=== PATIENT | male | born 2000 | race Caucasian/White ===

== ENCOUNTER 2022-02-13 17:34 | Emergency (ER) | payer MEDICAID, SELFPAY ==
[2022-02-13 17:36] VITALS: BP 125/59; PULSE 122; RESP 16; TEMP 36.8; O2SAT 100; BMI 21.5
[2022-02-13 17:46] VITALS: BP 110/64; PULSE 110; RESP 16; O2SAT 100
--- NOTE | 2022-02-13 17:59 | EX.ED.DYSGE1 ---
HPI History of Present Illness Chief Complaint: General Illness Narrative Narrative: 21-year-old male presenting with his hands in spasm for hours. He states he has a history of seizure disorder which he smokes marijuana to try to control. When asked what type of seizure he had he states he did not know there was multiple kinds however he also states he has absence seizure's and tonic-clonic seizures. Patient is not on any other medication for this. He is unsure if he has had a seizure. Patient denies headache, visual complaints, dizziness. Patient does state that he has noted that his left testicle is swollen and he has had some drainage from his penis. He states he has not had sexual intercourse in 3 months. He denies any trauma. He denies any high risk sex. Patient is also complaining that his penis is swollen. He has not had a fever, chills, flank pain. No abdominal pain. [facility] Medical History Anxiety Depression Seizures Substance abuse Home Medications doxycycline hyclate 100 mg capsule 100 mg PO DAILY #20 caps 02/13/22 [Rx Last Taken Unknown] potassium chloride 20 mEq tablet,extended release 40 meq PO DAILY 1 day #2 tabs 02/13/22 [Rx Last Taken Unknown] Allergy/AdvReac Type Severity Reaction Status Date / Time No Known Allergies Allergy Verified 02/13/22 17:38 Social History Smoking Status: Heavy Smoker (>10/day) ROS [facility] ED Constitutional Constitutional ED: Denies chills, fever(s) or sweats Eyes Eyes: Denies change in vision or diplopia ENT ENT ED: Denies rhinorrhea Cardiovascular Cardiovascular: Denies chest pain or palpitations Respiratory/Chest Respiratory/Chest: Denies cough or dyspnea Gastrointestinal Gastrointestinal: Denies abdominal pain or constipation Genitourinary Genitourinary ED: Reports other Details: Urethral drainage, left testicular swelling, swelling of the glans penis. Musculoskeletal Musculoskeletal: Denies arthralgias or back pain Integumentary Reports abscess Neurologic Neurologic: Denies headache(s) Psychiatric Psychiatric: Reports anxiety; Denies suicidal ideation or suicidal thoughts EXAM Physical Exam Const Vital Signs: 02/13/22 17:36 02/13/22 17:44 02/13/22 17:46 Temperature 98.3 F Temperature Source Temporal Pulse Rate 122 H 110 H Respiratory Rate 16 16 Respiratory Effort Normal Respiratory Pattern Normal Blood Pressure 125/59 H 110/64 Blood Pressure Mean 81 79 Pulse Ox 100 100 Oxygen Delivery Method Room Air Room Air 02/13/22 20:24 02/13/22 22:24 Temperature 99.5 F H Temperature Source Oral Pulse Rate 116 H Respiratory Rate 19 H 14 Respiratory Effort Respiratory Pattern Blood Pressure 123/66 H Blood Pressure Mean 85 Pulse Ox 100 Oxygen Delivery Method Room Air Room Air Positive well nourished and unkempt General Appearance ED: unkempt HEENT Reports moist mucous membranes Eyes PERRL and EOMs intact bilaterally Chest Wall inspection of chest normal and palpation of chest normal Resp normal respiratory effort and clear to auscultation bilaterally Cardio Rate: tachycardic GI normal to inspection, nondistended, normoactive bowel sounds Back/Spine no CVA tenderness Neuro oriented x3 and CN's II-XII intact bilaterally Psych Appearance: unkempt Attitude: agitated Mood & Affect: anxious MDM MDM MDM Narrative Medical decision making narrative: Patient presenting with multiple complaints. He states that for most of the last couple of hours he has had cramps in his hands bilaterally. He also complains of urethral discharge and on examination he does have urethral discharge from the penis. His left testicle is tender to palpation and it is swollen. No evidence of torsion here. Most of the tenderness in the epididymal region. The glans penis is slightly swollen. GC is positive however chlamydia is negative. Since patient's urinalysis was initially consistent with infection he was originally given a gram of Rocephin. Urine culture is sent. CBC shows a leukocytosis of 17.8. This is likely a combination of the patient's urethritis and methamphetamine use as his drug screen is positive for opioids, methamphetamines, MDMA, marijuana. Patient was given 2 L of IV fluids given his tachycardia and his cramping. His cramping did resolve. His CMP did not show any LFT abnormalities or renal abnormalities however his potassium slight low at 2.8. He was given a dose of oral potassium 40 mEq here. EtOH negative. Magnesium within normal limits. I did send for syphilis testing however this would not come back with the patient is here and he opted to be treated so he was given penicillin G 2,400,000 units. Testicular ultrasound was performed which does show evidence of epididymitis on the left as well as a left hydrocele, and left scrotal wall thickening. I attempted to call the on-call urologist Dr. Harris, however I was informed she only takes nutritionists for females. Given this I spoke with the patient and his mother who was at the bedside regarding this and I did peer counselor him that I can give them follow-up with urology here, however they may need to obtain closer follow-up elsewhere if they cannot get in the office as Dr. Ballard is not on-call and not sure how to obtain follow-up. A urine culture is sent. Patient was given first dose of doxycycline and is given 10 days of this for home. He was also given a dose of potassium for tomorrow. Patient is to follow-up with his lab results. Impression: 1. Methamphetamine abuse 2. MDMA abuse 3. Opioid abuse 4. Marijuana abuse 5. Urethral-itis 6. Epididymitis 7. Scrotal wall thickening 8. Leukocytosis 9. Hypokalemia 10. Hand cramping Lab Data Labs: Laboratory Results - last 24 hr 02/13/22 02/13/22 02/13/22 18:06 18:06 18:06 WBC 17.8 H RBC 5.06 Hgb 14.8 Hct 42.2 MCV 83.4 MCH 29.2 MCHC 35.1 RDW Std Deviation 36.4 RDW Coeff of Juan 11.9 Plt Count 325 MPV 9.5 Immature Gran % (Auto) 0.400 Neut % (Auto) 76.4 H Lymph % (Auto) 12.8 L [place] % (Auto) 10.1 H Eos % (Auto) 0.1 Baso % (Auto) 0.2 Absolute Neuts (auto) 13.6 H Absolute Lymphs (auto) 2.27 Nucleated RBC % 0 Differential Comment SCANNED Diff Path Review May foll Sodium 134 L Potassium 2.8 L Chloride 99 Carbon Dioxide 24.0 Anion Gap 11 BUN 9 Creatinine 1.02 Estim Creat Clear Calc 112.10 Est GFR (MDRD) Af Amer 120 Est GFR (MDRD) Non-Af 99 BUN/Creatinine Ratio 8.8 L Glucose 90 Calcium 9.3 Magnesium Total Bilirubin 1.00 AST 15 ALT 28 Alkaline Phosphatase 88 Total Protein 7.3 Albumin 3.8 Globulin 3.5 Albumin/Globulin Ratio 1.1 Urine Color Urine Clarity Urine pH Ur Specific [place] Urine Protein Urine Glucose (UA) Urine Ketones Urine Occult Blood Urine Nitrite Urine Bilirubin Urine Urobilinogen Ur Leukocyte Esterase Urine RBC Urine WBC Ur Squamous Epith Cells Urine Bacteria Urine Mucus Urine Opiates Screen Urine Methadone Screen Ur Barbiturates Screen Ur Phencyclidine Scrn Ur Amphetamines Screen MDMA (Ecstasy) Screen U Benzodiazepines Scrn Urine Cocaine Screen U Cannabinoids Screen Ur Drug Screen Comment Ethyl Alcohol 5.0 Chlam trachomat DNA PCR N.gonorrhoeae DNA (PCR) POC Glucose 02/13/22 02/13/22 02/13/22 18:06 18:11 18:45 WBC RBC Hgb Hct MCV MCH MCHC RDW Std Deviation RDW Coeff of Juan Plt Count MPV Immature Gran % (Auto) Neut % (Auto) Lymph % (Auto) [place] % (Auto) Eos % (Auto) Baso % (Auto) Absolute Neuts (auto) Absolute Lymphs (auto) Nucleated RBC % Differential Comment Diff Path Review Sodium Potassium Chloride Carbon Dioxide Anion Gap BUN Creatinine Estim Creat Clear Calc Est GFR (MDRD) Af Amer Est GFR (MDRD) Non-Af BUN/Creatinine Ratio Glucose Calcium Magnesium 1.6 Total Bilirubin AST ALT Alkaline Phosphatase Total Protein Albumin Globulin Albumin/Globulin Ratio Urine Color Yellow Urine Clarity Cloudy Urine pH 7.0 Ur Specific [place] 1.010 Urine Protein 100 H Urine Glucose (UA) Normal Urine Ketones 150 A* Urine Occult Blood 250 H Urine Nitrite Negative Urine Bilirubin Negative Urine Urobilinogen 4 H Ur Leukocyte Esterase 500 H Urine RBC 10-25 SEEN Urine WBC >100 SEEN Ur Squamous Epith Cells 0-5 SEEN Urine Bacteria 2+ Urine Mucus 0 SEEN Urine Opiates Screen Urine Methadone Screen Ur Barbiturates Screen Ur Phencyclidine Scrn Ur Amphetamines Screen MDMA (Ecstasy) Screen U Benzodiazepines Scrn Urine Cocaine Screen U Cannabinoids Screen Ur Drug Screen Comment Ethyl Alcohol Chlam trachomat DNA PCR N.gonorrhoeae DNA (PCR) POC Glucose 100 02/13/22 02/13/22 18:45 18:45 WBC RBC Hgb Hct MCV MCH MCHC RDW Std Deviation RDW Coeff of Juan Plt Count MPV Immature Gran % (Auto) Neut % (Auto) Lymph % (Auto) [place] % (Auto) Eos % (Auto) Baso % (Auto) Absolute Neuts (auto) Absolute Lymphs (auto) Nucleated RBC % Differential Comment Diff Path Review Sodium Potassium Chloride Carbon Dioxide Anion Gap BUN Creatinine Estim Creat Clear Calc Est GFR (MDRD) Af Amer Est GFR (MDRD) Non-Af BUN/Creatinine Ratio Glucose Calcium Magnesium Total Bilirubin AST ALT Alkaline Phosphatase Total Protein Albumin Globulin Albumin/Globulin Ratio Urine Color Urine Clarity Urine pH Ur Specific [place] Urine Protein Urine Glucose (UA) Urine Ketones Urine Occult Blood Urine Nitrite Urine Bilirubin Urine Urobilinogen Ur Leukocyte Esterase Urine RBC Urine WBC Ur Squamous Epith Cells Urine Bacteria Urine Mucus Urine Opiates Screen POSITIVE H Urine Methadone Screen NEGATIVE Ur Barbiturates Screen NEGATIVE Ur Phencyclidine Scrn NEGATIVE Ur Amphetamines Screen POSITIVE H MDMA (Ecstasy) Screen POSITIVE H U Benzodiazepines Scrn NEGATIVE Urine Cocaine Screen NEGATIVE U Cannabinoids Screen POSITIVE H Ur Drug Screen Comment Ethyl Alcohol Chlam trachomat DNA PCR Negative N.gonorrhoeae DNA (PCR) Positive H POC Glucose Radiography Diagnostic Testing: Clinical Impression(s) from Imaging Studies Testicular Ultrasound 02/13/22 20:25 IMPRESSION: Findings are highly consistent with left epididymitis with left scrotal wall thickening, mild left hydrocele, and enlarged and hypervascular left epididymal body and tail. No evidence of testicular mass or torsion. Electronically Signed: Ellie Parrish MD at 22:04 EDT , ADDENDUM: 02/13/222 IMPRESSION: Findings are highly consistent with left epididymitis with left scrotal wall thickening, mild left hydrocele, and enlarged and hypervascular left epididymal body and tail. No evidence of testicular mass or torsion. N.B. : Jenny Leon/ED follow up clerk, OT, confirmed on 02/13/2022 22:06:01 (ET) that the healthcare facility has received the radiology report. Electronically Signed: Ellie Parrish MD at 22:04 EDT , Discharge Plan Triage Chief Complaint: General Illness ED Provider: James Dominguez Dx/Rx/DC Orders Instructions: ED Drug Abuse, ED Epididymitis, ED Hypokalemia, ED STI Male Treated Prescriptions: New doxycycline hyclate 100 mg capsule 100 mg PO DAILY Qty: 20 0RF potassium chloride 20 mEq tablet extended release 40 meq PO DAILY 1 Days Qty: 2 0RF Primary Care Provider: Care Physician,No Primary Referrals: Dario Ballard MD [STAFF PHYSICIAN] - As soon as possible NOT,DEFINED [NON-STAFF] - Disposition Disposition: Home, Self Care
[2022-02-13 18:15] LABS: Bedside Glucose 100 mg/dL (74-106)
[2022-02-13] MEDS: Morphine 4 MG/ML Syringe IV (18:16)
[2022-02-13] MEDS: 0.9% Normal Saline 1,000 ML 1000 ML IV (18:16)
[2022-02-13] MEDS: Ondansetron 4 MG/2 ML Vial IV (18:16)
[2022-02-13 18:27] LABS: Absolute Lymphocyte Count 2.27 X10^3/uL (0.83-4.51); Absolute Neutrophil Count 13.6 X10^3/uL (2.0-7.7); Basophil# 0.04 X10^3/uL; Basophil% 0.2 % (0-1); Eosinophil# 0.01 X10^3/uL; Eosinophils% 0.1 % (0-5); Hematocrit 42.2 % (40-54); Hemoglobin 14.8 g/dL (13.0-16.5); Lymphocyte # 2.27 X10^3/ul (0.83-4.51); Lymphocyte % 12.8 % (19-41); Mean Corp Hgb Conc 35.1 g/dL (32-36); Mean Corpuscular Hgb 29.2 pg (27.0-32.0); Mean Corpuscular Volume 83.4 fL (80-94); Mean Platelet Vol. 9.5 fl (6.2-12.0); Monocyte# 1.79 X10^3/uL; Monocyte% 10.1 % (0-10); NRBC Flagged by Analyzer 0 % (0-5); Neutrophil # 13.61 X10^3/uL (2.7-7.7); Neutrophil % 76.4 % (47-70); POSITIVE DIFFERENTIAL YES; Platelet Count 325 K/mm3 (150-450); RBC Distribution Width CV 11.9 % (11.6-14.6); RBC Distribution Width SD 36.4 fl (35.1-43.9); Red Blood Count 5.06 M/mm3 (4.6-6.2); White Blood Count 17.8 K/mm3 (4.4-11.0)
[2022-02-13 18:29] LABS: Differential Indicated SCAN CRITERIA MET
--- NOTE | 2022-02-13 18:30 | CM.ED ---
Social Work Note Reason for Referral: No PCP SW reviewed chart, pt has no PCP listed. Pt was provided PCP list. Kerrie Helm MSW, TINNING MACHINE SET UP OPERATOR
[2022-02-13 18:39] LABS: ALB/GLOB Ratio 1.1 RATIO (0.9-2.4); AST(SGOT) 15 U/L (15-37); Alanine Aminotransfer ALT/SGPT 28 U/L (16-61); Albumin, Serum 3.8 g/dL (3.2-5.0); Alkaline Phosphatase 88 U/L (45-117); Anion Gap 11 (5-15); BUN 9 mg/dL (7-18); BUN/Creat Ratio 8.8 RATIO (10-20); Calcium,Total 9.3 mg/dL (8.5-10.1); Chloride 99 mmol/L (98-107); Creatinine, Serum 1.02 mg/dL (0.70-1.30); EST Glomerular Filtration Rate 99 mL/min (>60); Est Glom Filt Rate - Afr Amer 120 mL/min (>60); Globulin 3.5 g/dL (2.2-4.2); Glucose 90 mg/dL (74-106); Potassium 2.8 mmol/L (3.5-5.1); Protein, Total 7.3 g/dL (6.4-8.2); Sodium Level 134 mmol/L (136-145)
[2022-02-13] MEDS: Potassium Chloride Oral Tablet 20 MEQ 40 MEQ PO (18:49)
[2022-02-13 18:51] LABS: Mucous, Urine 0 SEEN /hpf (<or=2+)
[2022-02-13 19:00] LABS: Color, Urine Yellow (Yellow); Glucose, Dipstick Normal (Normal); Leukocyte Esterase-Dipstick 500 /ul (Negative); Nitrite-Dipstick Negative (Negative); Occult Blood-Urine 250 /ul (Negative); Protein-Dipstick 100 mg/dl (Negative); Urine Bilirubin Dipstick Negative (Negative); Urine Clarity Cloudy (Clear); Urine Urobilinogen 4 mg/dl (Normal)
[2022-02-13 19:02] LABS: Differential Comment SCANNED
[2022-02-13 19:12] LABS: Amphetamine Urine VISTA POSITIVE (<1000 ng/mL); Barbiturate Urine VISTA NEGATIVE (< 200 ng/mL); Benzodiazepine Urine VISTA NEGATIVE (< 200 ng/mL); Cocaine Urine VISTA NEGATIVE (< 300 ng/mL); Ecstacy Urine VISTA POSITIVE (< 500 ng/mL); Methadone Urine VISTA NEGATIVE (< 300 ng/mL); PCP Urine VISTA NEGATIVE (< 25 ng/mL); THC Urine VISTA POSITIVE (< 50 ng/mL); Vista UDS pH Range 8
[2022-02-13 19:16] LABS: Ketone-Dipstick 150 mg/dl (Negative)
[2022-02-13 19:19] LABS: Red Blood Cells-Urine 10-25 SEEN /hpf (0-5); White Blood Cells >100 SEEN /hpf (0-5)
[2022-02-13 19:20] LABS: Bacteria 2+ /hpf (None Seen); Squamous Epithelial Cells - UA 0-5 SEEN /hpf (0-5)
[2022-02-13 20:18] LABS: Magnesium 1.6 mg/dL (1.6-2.6)
[2022-02-13 20:24] VITALS: BP 123/66; PULSE 116; RESP 19; TEMP 37.5; O2SAT 100
--- NOTE | 2022-02-13 20:25 | US_ITS ---
ACR Level 3 findings have been noted. An addendum which confirms receipt of the report will follow. EXAM: US SCROTUM CLINICAL INDICATION: LT TESTICULAR PAIN TECHNIQUE: Realtime ultrasound of the testicles was performed with grayscale and Color Doppler analysis. This report was created using [employer] report generation technology. COMPARISON: None. FINDINGS: RIGHT TESTICLE: Right testis 5 cm x 2.9 cm x 2.1 cm. Left testis 4.4 cm x 2.9 cm x 2.5 cm. Homogeneous echogenicity and documented low flow in the testes. No focal lesion. Normal blood flow is present. LEFT TESTICLE: See above. EPIDIDYMIDES: There is an enlarged and hypervascular left epididymal body and tail consistent with epididymitis. Left epididymal head appears unremarkable with the exception of tiny 2 mm cyst or spermatocele. Unremarkable right epididymis, 8mm epididymal head. SCROTUM: Mild left scrotal wall thickening and hypervascularity. Left scrotal wall 6 mm compared to without 3.5 mm on the right. No hydrocele. No varicocele. US/Testicular with Arterial Flow IMPRESSION: Findings are highly consistent with left epididymitis with left scrotal wall thickening, mild left hydrocele, and enlarged and hypervascular left epididymal body and tail. No evidence of testicular mass or torsion. Electronically Signed: Ellie Parrish MD at 22:04 EDT ,
[2022-02-13 21:04] LABS: Chlamydia Trachomatis by PCR Negative (Negative); Probe Check PASS
[2022-02-13 21:06] LABS: Neisserai gonorrhoeae by PCR Positive (Negative)
[2022-02-13] MEDS: 0.9% Normal Saline 1,000 ML 999 ML IV (21:14)
[2022-02-13] MEDS: Ceftriaxone 1 GM/50 ML BAG IV (21:14)
[2022-02-13] MEDS: Penicillin G Benzathine 2.4 MU/4 ML Syringe IM (21:34)
[2022-02-13 22:24] VITALS: RESP 14
[2022-02-13] MEDS: Doxycycline 100 MG CAPSULE PO (22:57)
[2022-02-14 08:26] LABS: Syphilis Antibodies Non-reactive
[2022-02-14 13:40] LABS: Pathologist Review Reviewed
== END 2022-02-13 23:07 | disposition home or self-care (01) ==
PROVIDERS: Emergency Provider Student in an Organized Health Care Education/Training Program; Visit Provider Student in an Organized Health Care Education/Training Program
DX: N45.1 Epididymitis (principal); F15.10 Other stimulant abuse, uncomplicated; F11.10 Opioid abuse, uncomplicated; N34.2 Other urethritis; N43.3 Hydrocele, unspecified; E87.6 Hypokalemia; F12.10 Cannabis abuse, uncomplicated; D72.829 Elevated white blood cell count, unspecified; F17.200 Nicotine dependence, unspecified, uncomplicated
CPT/HCPCS: 76870; 80053; 80307; 81001; 82077; 82962; 83735; 85025; 86780; 87086; 87491; 87591; 93976; 96361; 96365; 96372; 96375; 99282; J7030; A4216; J2405

== ENCOUNTER 2024-11-01 09:38 | Emergency (ER) | payer SELFPAY ==
[2024-11-01 09:39] VITALS: BP 141/86; PULSE 81; RESP 16; TEMP 36.7; O2SAT 98; BMI 21.5
--- NOTE | 2024-11-01 10:10 | EDS_ITS ---
HPI History of Present Illness Chief Complaint: GI Bleed Detail of Chief Complaint: Rectal bleeding Informant: patient Narrative Narrative: Patient presents with rectal bleeding that started 2 weeks ago. He states that its intermittent and only notices it on the toilet paper when he wipes. At times he is had a little bit of a burning sensation in the rectum. Denies fevers or chills or sweats. He states there is no blood mixed in with the stool. He is not passing clots. Denies abdominal pain. No family history of inflammatory bowel disease. He denies any lumps or bumps to the rectum such as hemorrhoids. He denies constipation issues although he states he has had some large stools that he is passed. [facility] Medical History Anxiety Depression Seizures Substance abuse Home Medications ?Medication ?Instructions ?Recorded ?Last Taken ?Type doxycycline hyclate 100 mg capsule 100 mg PO DAILY #20 caps 02/13/22 Unknown Rx potassium chloride 20 mEq 40 meq (2 x 20 mEq) PO DAILY 1 day 02/13/22 Unknown Rx tablet,extended release #2 tabs Allergy/AdvReac Type Severity Reaction Status Date / Time No Known Allergies Allergy Verified 11/01/24 09:40 Social History Smoking Status: Heavy Smoker (>10/day) ROS ROS ED Review of Systems ROS Unobtainable: other Constitutional Constitutional ED: Denies chills, fever(s), lethargy, sweats or weight loss Eyes Eyes: Denies blurry vision, change in vision or diplopia ENT ENT ED: Denies rhinorrhea or sore throat Cardiovascular Cardiovascular: Denies chest pain, orthopnea or racing heartbeat Respiratory/Chest Respiratory/Chest: Denies cough, dyspnea, dyspnea on exertion, orthopnea or sputum Gastrointestinal Gastrointestinal: Reports other Details: Rectal bleeding ; Denies abdominal pain, diarrhea, nausea or vomiting Genitourinary Genitourinary ED: Denies dysuria, hematuria or urinary frequency Musculoskeletal Musculoskeletal: Denies arthralgias, back pain, myalgias or neck pain Integumentary Denies abscess, Abrasions or rash Neurologic Neurologic: Denies headache(s) or weakness Psychiatric Psychiatric: Denies anxiety, depression or suicidal thoughts Endocrine Endocrinology: Denies polydipsia, polyphagia or polyuria Hematologic/Lymphatic Hematologic/Lymphatic: Denies easy bleeding, easy bruising or lymphadenopathy Allergic/Immunologic Allergic/Immunologic ED: Denies mouth swelling, tongue swelling or urticaria EXAM Physical Exam Const Vital Signs: 11/01/24 09:39 Temperature 98.1 F Temperature Source Temporal Pulse Rate 81 Respiratory Rate 16 Blood Pressure 141/86 H Blood Pressure Mean 104 Pulse Ox 98 Oxygen Delivery Method Room Air Positive well nourished and well developed General Appearance ED: well developed and NAD HEENT Reports TM's clear and moist mucous membranes normocephalic and atraumatic; Negative for trauma or tenderness Tympanic Membrane ED: Yes TM's clear Eyes PERRL and EOMs intact bilaterally General Eye ED: Negative for pale conjunctiva or scleral icterus Neck no lymphadenopathy, supple and no JVD General: Negative for tenderness Chest Wall inspection of chest normal and palpation of chest normal Chest: Negative for tenderness Resp normal respiratory effort and clear to auscultation bilaterally Effort and Inspection: Negative for respiratory distress or pain with movement Auscultation: Negative for rhonchi, wheezes or diminished lung sounds Cardio regular rate, regular rhythm, S1 normal heart sound, S2 normal heart sound and no murmurs Peripheral Pulses: pulses 2+ throughout GI normal to inspection, nondistended, normoactive bowel sounds, soft to palpation, non-tender, non-distended and no masses GI Narrative: Rectal exam performed-there are no hemorrhoids noted. No obvious fissures noted. On digital rectal exam I do not palpate any masses in the rectal vault and there was brown stool. Back/Spine no CVA tenderness and no thoracic nor lumbar tenderness Extremity normal to inspection General Extremety ED: Negative for edema General Extremity: Negative for edema Neuro oriented x3, CN's II-XII intact bilaterally, no sensory deficits noted and gait normal Sensorium / Orientation: awake, alert, oriented to person, oriented to place and oriented to time Motor Exam: strength 5/5 throughout and strength abnormal Psych mental status grossly normal Skin no rashes or lesions noted and no wounds MDM MDM MDM Narrative Medical decision making narrative: Patient with intermittent rectal bleeding on toilet paper when he wipes. Exam is benign. Clinically I suspect likely fissure as the etiology. His abdomen is benign. Will obtain a stool Hemoccult as well as a CBC and a sed rate. Patient CBC with differential showed a white count of 6.1 with hemoglobin 16.0 and a platelet count of 297. Sed rate was normal. Clinically I suspect a rectal fissure. Patient was advised to use a stool softener to keep the stool soft. Advised on sitz bath's. Will be given referral to general surgery for follow-up if persistent bleeding as he may require further investigation such as possibly colonoscopy or proctoscopy. Lab Data Attestation: I reviewed the patient's lab results. Labs: Laboratory Results - last 24 hr 11/01/24 10:24 WBC 6.1 RBC 5.29 Hgb 16.0 Hct 46.7 MCV 88.3 MCH 30.2 MCHC 34.3 RDW Std Deviation 41.7 RDW Coeff of Juan 12.8 Plt Count 297 MPV 10.1 Immature Gran % (Auto) 0.300 Neut % (Auto) 60.1 Lymph % (Auto) 29.0 [place] % (Auto) 8.4 Eos % (Auto) 1.5 Baso % (Auto) 0.7 Absolute Neuts (auto) 3.7 Absolute Lymphs (auto) 1.77 Nucleated RBC % 0 ESR < 1 Discharge Plan Triage Chief Complaint: GI Bleed ED Provider: Doug Browne Dx/Rx/DC Orders Clinical Impression: Rectal bleed, Rectal fissure Instructions: ED Understanding Anal Fissures, ED Lower GI Bleeding (Stable) Prescriptions: No Action doxycycline hyclate 100 mg capsule 100 mg PO DAILY Qty: 20 0RF potassium chloride 20 mEq tablet extended release 40 meq PO DAILY 1 Days Qty: 2 0RF Primary Care Provider: Care Physician,No Primary Referrals: Chau Zavala MD [Med Staff - Active Staff] - 3-5 Days Care Physician,No Primary [Primary Care Provider] - Print Language: [place]an Disposition Disposition: Home, Self Care
[2024-11-01 10:47] LABS: Erythrocyte Sedimentation Rate < 1 mm/hr (0-20)
[2024-11-01 10:48] LABS: Absolute Lymphocyte Count 1.77 X10^3/uL (0.83-4.51); Absolute Neutrophil Count 3.7 X10^3/uL (2.0-7.7); Basophil# 0.04 X10^3/uL; Basophil% 0.7 % (0-1); Eosinophil# 0.09 X10^3/uL; Eosinophils% 1.5 % (0-5); Hematocrit 46.7 % (40-54); Lymphocyte # 1.77 X10^3/ul (0.83-4.51); Mean Corp Hgb Conc 34.3 g/dL (32-36); Mean Corpuscular Hgb 30.2 pg (27.0-32.0); Mean Corpuscular Volume 88.3 fL (80-94); Mean Platelet Vol. 10.1 fl (6.2-12.0); Monocyte# 0.51 X10^3/uL; Monocyte% 8.4 % (0-10); NRBC Flagged by Analyzer 0 % (0-5); Neutrophil # 3.67 X10^3/uL (2.7-7.7); Neutrophil % 60.1 % (47-70); Platelet Count 297 K/mm3 (150-450); RBC Distribution Width CV 12.8 % (11.6-14.6); RBC Distribution Width SD 41.7 fl (35.1-43.9); Red Blood Count 5.29 M/mm3 (4.6-6.2); White Blood Count 6.1 K/mm3 (4.4-11.0)
[2024-11-01 11:15] VITALS: BP 128/78; PULSE 64; RESP 18; TEMP 36.6; O2SAT 99
== END 2024-11-01 11:16 | disposition home or self-care (01) ==
PROVIDERS: Emergency Provider Emergency Medicine; Visit Provider Emergency Medicine
DX: K60.2 Anal fissure, unspecified (principal); K62.5 Hemorrhage of anus and rectum; F17.200 Nicotine dependence, unspecified, uncomplicated
CPT/HCPCS: 82274; 85025; 85652; 99283; A4216

== ENCOUNTER 2024-11-07 23:57 | Emergency (ER) | payer SELFPAY ==
[2024-11-07 23:58] VITALS: BP 125/77; PULSE 97; RESP 16; TEMP 36.1; O2SAT 94; BMI 23.1
== END 2024-11-08 00:05 | disposition left against medical advice (07) ==
LOC: ED 11-08 00:07
DX: R11.10 Vomiting, unspecified (principal); R42 Dizziness and giddiness; Z53.21 Procedure and treatment not carried out due to patient leaving prior to being seen by health care provider